=== PATIENT | female | born 1970 | race Caucasian/White ===

== ENCOUNTER 2017-05-03 15:51 | Emergency (ER) | payer BC ==
[2017-05-03] MEDS ORDERED: DIPHTH,PERTUSS(ACELL),TET VAC 0.5 ML VIAL IM ONE ×2 (16:03→16:19)
--- OUTSIDE RECORDS SUMMARY | 2017-05-03 16:40 | XMS REPORT | Continuity of Care Document ---
:1970 Author Organization [facility] ([facility]) Address [address] [place] [address] Phone [phone] Care Team Providers Name Role Phone Provider, No-Primary Care Primary Care Provider Unavailable Source Comments This disclosure is being made pursuant to the Care Everywhere program, applicable federal and state laws, and may not contain all informaitonavailable regarding this patient.[facility] ([facility]) Active Allergies and Adverse Reactions No Active Allergies Current Medications Not on file Active Problems Problem Noted Date Female infertility of unspecified origin 02/14/2009 Social History Tobacco Use Types Packs/Day Years Used Date Never Assessed Last Filed Vital Signs Vital Sign Reading Time Taken Blood Pressure 135/80 02/07/2009 2:18 PM CDT Pulse 70 02/07/2009 2:18 PM CDT Temperature - - Respiratory Rate - - Height 1.65 m (5' 4.96") 02/07/2009 2:18 PM CDT Weight 66.198 kg (145 lb 15 oz) 02/07/2009 2:18 PM CDT Body Mass Index 24.32 02/07/2009 2:18 PM CDT Oxygen Saturation - - Plan of Care Health Maintenance Due Date Last Done Comments Hepatitis B Vaccine (1 of 3 - Primary Series) 1970 Tdap Vaccine 1981 Lipid Disorder Screening 1988 MMR Vaccine 1988 Td Vaccine 1988 Cervical Cancer Screening 2000 Mammogram 2010 Influenza Vaccine: Seasonal (#1) 06/18/2016 Results from Last 3 Months Not on file
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
[2017-05-03 17:34] VITALS: BP 126/80
== END 2017-05-03 17:25 | disposition home or self-care (01) ==
LOC: ER 15:51
DX: S60.222A Contusion of left hand, initial encounter (principal); S70.02XA Contusion of left hip, initial encounter; S70.12XA Contusion of left thigh, initial encounter; V13.4XXA Pedal cycle driver injured in collision with car, pick-up truck or van in traffic accident, initial encounter; Y92.410 Unspecified street and highway as the place of occurrence of the external cause; Y93.55 Activity, bike riding; Z23 Encounter for immunization; S61.412A Laceration without foreign body of left hand, initial encounter